=== PATIENT | female | born 1940 | race Caucasian/White ===

== ENCOUNTER → 2016-05-28 | Outpatient (CLI) | payer MEDICARE, OTHER ==
[~2016-05-28] MED LIST: BENTYL20 MG PO; CYMBALTA PO; HCTZ PO; LIPITOR PO; LISINOPRIL1 GM PO; NABUMETONE PO; OMEPRAZOLE40 MG PO; PANTOPRAZOLE SO40 MG PO; PREMARIN PO; PRILOSEC PO; PRINIVIL10 MG PO; SIMVASTATIN20 MG PO
--- NOTE | ~2016-05-28 | CR63 ---
[facility] A Service of [facility] RADIOLOGY TEXT RESULTS PATIENT: RUSSEL WEBB LOCATION: [facility] : 40 UNIT #: [id number] AGE: [address]: Keena Baptiste MD SEX: F ORDER DR: [id number] [facility] [address]. [place], [place] [address] [id number] O MR#: [id number] Acc #: [id number] NAME: RUSSEL WEBB : 1940 SEX: F STUDY DATE/TIME: 05/28/2016 12:03 UNIT: [facility] ROOM: STUDY DESCRIPTION: CR Chest 2 View Attending Physician: Keena Baptiste M.D. Referring Physician: Keena Baptiste M.D. Ordering Physician: Keena Baptiste M.D. Primary Care Physician: Keena Baptiste M.D. MEDICAL IMAGING REPORT This report is preliminary unless electronic signature is present EXAM Two-view chest INDICATION Chest pain, shortness of air for the past month. PROCEDURE Frontal and lateral views of the chest COMPARISON None FINDINGS Heart size normal. Postsurgical change along the medial right upper lobe. No dense consolidation, effusion or pneumothorax. IMPRESSION 1. No active process. 2. Postsurgical change along the medial right upper lobe. Dictated by... Kamaljit Siu M.D. THIS IS AN ELECTRONICALLY VERIFIED REPORT Kamaljit Siu M.D. at 05/30/2016 7:14 AM Malorie TD: 05/28/2016 17:44 JOB #: [id number] MEDICAL IMAGING REPORT Page 1 of 1 COPY
== END | disposition home or self-care (01) ==
LOC: CRAD 11:54
DX: R07.9 Chest pain, unspecified (principal); Z98.890 Other specified postprocedural states
CPT/HCPCS: 71020

== ENCOUNTER → 2016-06-09 | Outpatient (CLI) | payer MEDICARE, OTHER ==
--- NOTE | ~2016-06-09 | TH ---
Unit #: [id number] #: [id number] Patient: RUSSEL WEBB [id number] [address] [address] [id number] O MR#: [id number] NAME: RUSSEL WEBB : 1940 SEX: F STUDY DATE/TIME: 06/09/2016 UNIT: [facility] ROOM: STUDY DESCRIPTION: Imaging Study Attending Physician: Keena Baptiste M.D. Referring Physician: Keena Baptiste M.D. Primary Care Physician: Keena Baptiste M.D. CARDIOLOGY REPORT EXAM Nuclear stress test INDICATION Chest discomfort and arm pain. SUMMARY Patient underwent nuclear stress test, received a resting dose of 11.99 mCi and a stress dose of 31.1 mCi. On gated imaging patient appears to have hyperdynamic LV function with an LVEF of 79%. On perfusion imaging, comparing rest and stress images there appears to be no reversible perfusion defects. CONCLUSION 1. No obvious ischemia. 2. Hyperdynamic left ventricular function. 3. ECG portion to be dictated separately. Dictated by... Paco Beckett M.D. GA/cf TD: 06/09/2016 17:02 JOB #: [id number] CARDIOLOGY REPORT Page 1 of 1 X PACO BECKETT MD CARDIOLOGY REPORT
--- NOTE | ~2016-06-09 | ST ---
Unit #: [id number] #: [id number] Patient: RUSSEL WEBB [id number] [address] [address] [id number] O MR#: [id number] NAME: RUSSEL WEBB. : 1940 SEX: F STUDY DATE/TIME: 06/09/2016 UNIT: [facility] ROOM: STUDY DESCRIPTION: Stress test Attending Physician: Keena Baptiste M.D. Referring Physician: Keena Baptiste M.D. Primary Care Physician: Keena Baptiste M.D. CARDIOLOGY REPORT REASON FOR EXAM Chest pain. PROCEDURE Baseline EKG shows normal sinus rhythm, rate of 75 beats per minute, left axis deviation. The patient exercised on the treadmill according to the protocol for a total of 3 minutes and 14 seconds achieving 4.6 METS. Resting heart rate was 75 beats per minute, peak heart rate of 127 beats per minute achieving 87% of the maximum predicted heart rate. During the test at peak exercise the patient was unable to continue into stage 2 secondary to extreme shortness of breath, fatigue and leg weakness, as well as increasingly unsteady gait. The test was stopped secondary to this reason. She complained of no chest pain throughout the stress test. There were no ST segment changes suggestive of ischemia. There was no ectopy. IMPRESSION 1. Negative EKG portion of exercise Cardiolite. 2. No ST segment changes noted suggestive of ischemia. 3. No arrhythmias. 4. The patient did experience extreme shortness of breath at peak exertion. She was unable to continue into stage 2 secondary to this reason, as well as extreme fatigue and increasingly unsteady gait. The test was stopped secondary to this reason. She has very poor exercise tolerance. Her symptoms returned to baseline in the recovery period. She denied any chest pain throughout the testing. 5. Please correlate with nuclear imaging. Dictated by... Arely Mckeon A.P.R.N. for Cosmo Cowan/db TD: 06/09/2016 12:32 JOB #: [id number] Unit #: [id number] #: [id number] Patient: RUSSEL WEBB CARDIOLOGY REPORT Page 1 of 1 X Arely Mckeon APRN CARDIOLOGY REPORT
== END | disposition home or self-care (01) ==
LOC: CNUC 07:54
DX: R07.9 Chest pain, unspecified (principal)
CPT/HCPCS: 78452; 93017; A9500